=== PATIENT | female | born 2000 | race Caucasian/White ===

== ENCOUNTER 2024-01-13 05:24 | Emergency (ER) | payer BC, SELFPAY ==
[2024-01-13 05:29] VITALS: BP 121/91
[2024-01-13 06:34] VITALS: BMI 28.1
--- NOTE | 2024-01-13 07:19 | ED.GENMED ---
History of Present Illness
General
Chief Complaint: Back Pain
Source: patient
Exam Limitations: none
Time Seen by Provider: 01/13/24 07:05
Nursing documentation reviewed up to this point in time: agreed with
History of Present Illness
History of Present Illness:
Patient is a 23-year-old female who presents to the ER for evaluation of muscle tightness, back neck jaw tightness. She reports the past several days she has noticed that her muscles are very tight. She has noticed that her jaw is clicking feels
discomfort when she opens her mouth but she is able to do so. She feels that her jaw is locking up. She reports normally she has hypermobile joints but those symptoms seem different. She denies any new trauma. She had slept in a hotel bed and
was wondering if this made her neck and back stiff. She has been taking ibuprofen. She presents to the ER because of extreme muscle tightness and muscle spasms. She denies any fever or chills. She reports she is nauseous and has been vomiting
because of the discomfort. She denies any shortness of breath abdominal pain chest pain. She denies any numbness tingling or weakness in extremities. She reports her strength feels normal. She does report she has a history of hypermobility with
joints. Last menstrual period was 4 days ago. No prior history pregnancies.
She came to the ER today because she is flying to [place] as she is relocating there and wanted to be evaluated prior to leaving.
Past History
Past History
ED Past Medical History: Psychiatric (Anxiety), Other (migraine headaches) and Other (ADHD)
ED Past Surgical History: Other
Social History
Tobacco: Non-smoker
Alcohol: Occasional
Drug: Marijuana
Personal: Single
Living: with family (Lives with boyfriend in [place]. Is currently visiting her mother in [place].)
Employment: Student
Family History
Family History: Other (Migraine headaches with seizure)
Review of Systems
Review of Systems
Allergies reviewed?: Yes
All Other Systems: ROS reviewed and negative except as documented in HPI and ROS
Constitutional: Reports no symptoms; Denies fever, fatigue or chills
EENT: Reports no symptoms
Respiratory: Reports no symptoms; Denies trouble breathing
Cardiac: Reports no symptoms; Denies chest pain, palpitations or syncope
ABD/GI: Reports other
: Reports no symptoms
Musculoskeletal: Reports other (muscle 'spasm' neck stiffness jaw stiffness )
Skin: Reports no symptoms
Neurological: Reports no symptoms
Endocrine: Reports no symptoms
Hematologic/Lymphatic: Reports no symptoms
Psychiatric: Reports no symptoms
Phy Exam
General Physical Exam
General Presentation: no apparent distress
General age: appears stated age
General Skin: warm and dry
General Habitus: normal
General Mental: alert
General Hydration: appears well hydrated
ENT Exam
ENT Exam: EOMI and neck supple
Neurological Exam
Neurological Exam: alert and oriented x3
Musculoskeletal Exam
Musculoskeletal Exam: full ROM and other (Jaw clicking audible/palpated on exam however no trismus no bony midline cervical thoracic or lumbar tenderness mildly tender to the trapezius/cervical muscles, no swelling or redness to joints full range
of motion to all joints.)
Skin Exam
Skin Exam: normal color and warm/dry
Course
Orders/Labs/Results
Orders:
Orders
01/13/24 07:23
diazePAM [Valium Injection] 5 mg IM NOW STA
01/13/24 07:25
Acetaminophen [Tylenol] 650 mg PO NOW STA
Vital Signs
Initial and Last Documented VS:
Initial Vital Signs
Temp Pulse Resp BP Pulse Ox
98.2 F 79 20 121/91 98
01/13/24 05:29 01/13/24 05:29 01/13/24 05:29 01/13/24 05:29 01/13/24 05:29
Last Documented Vital Signs
Temp Pulse Resp BP Pulse Ox
98.2 F 79 20 114/81 99
01/13/24 05:29 01/13/24 05:29 01/13/24 05:29 01/13/24 08:00 01/13/24 08:31
MDM/Problems Addressed
MDM/Problems Addressed:
Patient is a 23-year female who presents to the ER complaining muscle spasms in neck back jaw. She feels muscle tightness. She denies any injury but did sleep on the wrong bed. She does have a history of hypermobility joints. She denies any
trauma. Denies any fever or chills. She presents today awake alert no acute distress she was going to fly to [place] today but wanted to get this evaluated first. She is going to [place] to live and will find a family doctor there. She
presents awake alert no acute distress afebrile. No meningismus mildly tender without cervical muscles some clicking in jaw however no trismus able to fully open mouth. She is describing muscle spasms however appears very well appearing and in no
acute distress. She does have a history of muscle spasms in the past. She received 1 dose of Valium here feeling much better she remains nontoxic will give prescription for Flexeril with instructions to take Tylenol and ibuprofen I did review with
patient the importance of getting family doctor when she settles in [place].
*Critical Care Note
Total Time (30-74mins, 75-104mins- exclusive of procedures): Not Applicable
ED Attending Note
-
Portions of this chart may have been created with voice recognition software.� Occasional wrong word or��sound alike� substitutions may have occurred due to the inherent limitations of voice recognition software.
Discharge Plan
Departure
Patient Disposition: Home (Routine Discharge)
Date of Disposition: 01/13/24
Time of Disposition: 08:42
Patient with high blood pressure during this ER visit?: Yes
Condition: Fair
Covid-19: Not Applicable
Discharge Problem:
Muscle spasm
Instructions: Muscle spasms (muscle cramps)
Prescriptions:
New
cyclobenzaprine 10 mg tablet
10 mg PO TID PRN (Reason: muscle spasm) Qty: 10 0RF
No Action
escitalopram oxalate 10 MG tablet
10 mg PO DAILY
Referrals:
NONE,* [Family Provider] -
Activity Restrictions/Additional Instructions:
As discussed or moist heat to muscles several times a day. Ibuprofen 600 mg every hours with food may alternate with Tylenol. Flexeril 10 mg every 8 hours as needed. This is a muscle relaxer no driving or drinking alcohol taking this medication.
Follow-up with family doctor as discussed for further evaluation of symptoms and return if any worsening of symptoms.
Interventions
Interventions:
*Risk Screen - Suicide Last Done: 01/13/24 05:29
*General Assessment Last Done: 01/13/24 05:29
*Neglect/Abuse Screening Last Done: 01/13/24 05:29
ED- Fall Risk Assessment Last Done: 01/13/24 05:29
*ED COVID-19 Vaccine History Last Done: 01/13/24 05:29
ED-Musculoskeletal Assessment Last Done: 01/13/24 07:07
Discharge Date and Time
Print Language: ROMANSH
[2024-01-13] MEDS: VALIUM INJECTION 5 MG IM (07:28)
--- NOTE | 2024-01-13 07:41 | EDRN ---
this RN entered the pts room to administer IM Valium, the pt was found in stretcher in the lowest position, side rails up x1, HOB elevated, call vizcarra within reach, HOB elevated, the pt was tearful and kept apologizing to this RN for 'wasting the
ER's time', this RN assured the pt that she had no reason to be sorry and that [facility] is always here to help, this RN talked the pt through deep breathing exercises and the pt was able to calm down and relax, VS WNL, no s/s of distress,
the pt is able to ambulate with no issues, the pt describes the feeling as 'my joints are tense', will continue to monitor the pt closely
[2024-01-13 07:44] VITALS: BP 108/79
[2024-01-13 08:00] VITALS: BP 114/81
--- NOTE | 2024-01-13 08:36 | EDRN ---
the pt is resting in stretcher in the lowest position, side rails up x2 call vizcarra within reach, HOB elevated, VS WNL, no s/s of distress, the pt is sleeping, will continue to monitor the pt closely
== END 2024-01-13 08:58 | disposition home or self-care (01) ==
LOC: EMR 05:24
PROVIDERS: EMERGENCY PHYSICIAN Emergency Medicine
DX: M62.838 Other muscle spasm (principal); R11.2 Nausea with vomiting, unspecified; R68.84 Jaw pain; M54.2 Cervicalgia; M54.6 Pain in thoracic spine; R03.0 Elevated blood-pressure reading, without diagnosis of hypertension; F41.9 Anxiety disorder, unspecified; F90.9 Attention-deficit hyperactivity disorder, unspecified type; Z88.5 Allergy status to narcotic agent; Z88.0 Allergy status to penicillin; Z88.1 Allergy status to other antibiotic agents; Z88.3 Allergy status to other anti-infective agents; Z91.040 Latex allergy status
CPT/HCPCS: 99284; 96372